=== PATIENT | female | born 1945 | race Caucasian/White ===

== ENCOUNTER → 2017-01-02 | Outpatient (CLI) | payer MEDICARE ==
--- NOTE | 2017-01-02 09:55 | XR ---
EXAMINATION TYPE: XR knee complete bilateral DATE OF EXAM: 01/02/2017 COMPARISON: NONE HISTORY: 71-year-old female chronic bilateral knee pain TECHNIQUE: 3 views each side FINDINGS: There is tricompartmental degenerative change with marginal spurring. Moderate loss of cartilage and joint space in the right medial compartment and mild in the left on these nonweightbearing views. Ext ensor mechanisms appear intact. No acute fracture or dislocation seen. IMPRESSION: Tricompartmental osteoarthrosis greatest in the right greater than left medial compartments. The over all degree of cartilage and joint space loss may be underestimated on these nonweightbearing views.
== END ==
LOC: RADXRYALE 09:25
PROVIDERS: ATTEND Family Medicine
DX: M17.0 Bilateral primary osteoarthritis of knee (principal)

== ENCOUNTER → 2017-03-24 | Outpatient (CLI) | payer MEDICARE | END | disposition home or self-care (01) | LOC: LABPAT 12:24 | PROVIDERS: ATTEND Orthopaedic Surgery | DX: Z01.812 Encounter for preprocedural laboratory examination (principal) | CPT/HCPCS: 87070 ==

== ENCOUNTER 2017-04-24 10:25 | Inpatient (IN) | payer MEDICARE ==
[2017-04-17 18:06] VITALS: BMI 40.0
--- NOTE | 2017-04-23 09:31 | HP ---
HISTORY AND PHYSICAL REASON FOR ADMISSION: Surgery scheduled for 04/24/2017 HISTORY OF PRESENT ILLNESS: Yanelis Hodges is a 71-year-old patient seen with symptomatic right knee osteoarthritis. We discussed treatment options. She elected to proceed with right total knee arthroplasty. Consent was obtained. Medical clearance was provided by Dr. Jack. PAST MEDICAL HISTORY: Hypertension, hyperlipidemia, hypothyroidism, non-insulin dependent diabetes. PAST SURGICAL HISTORY: Noncontributory. MEDICATIONS: Amitriptyline, atorvastatin, furosemide, levothyroxine, metformin. ALLERGIES: PENICILLIN, MORPHINE. SOCIAL HISTORY: Patient denies current tobacco use. PHYSICAL EXAMINATION: Evaluation of the right knee range of motion is negative 2 to 115 degrees. Tenderness along the medial joint line. Positive medial Alex's. Crepitus along the medial patellofemoral compartments. Range of motion. Ligaments stable. Hip rotation without pain. Distal neurovascular exam intact. RADIOGRAPHS: Right knee radiographs revealed severe medial and moderate patellofemoral compartment osteoarthritis. IMPRESSION: 1. Right knee osteoarthritis. 2. Clv-oxzdlap-fbgeeejcb diabetes. 3. Hypertension. 4. Hyperlipidemia. 5. Hypothyroidism. PLAN: Right total knee arthroplasty. Surgery scheduled 04/24/2017. MMODL / IJN: [id number] /
[~2017-04-24 10:25] MED LIST: ACETAMINOPHEN TAB 500 MG TAB PO ONE; DEXAMETHASONE SOD PHOSPHATE 10 MG/ML 1 ML VIAL IV ONE; HYDROmorphone 0.5 MG/0.5 ML SYRINGE IVP PRN; LIDOCAINE 1% 20 ML VIAL (10MG/ML) FOR IV START INTRADERMA PRN; MELOXICAM 7.5 MG TAB PO ONE; MIDAZOLAM 2 MG/2 ML VIAL IV PRN; ONDANSETRON 4 MG/2 ML VIAL IVP ONE; SCOPOLAMINE 1.5MG/72HR PATCH TRANSDERM ONE; TRANEXAMIC ACID 1,000 MG in SODIUM CHLORIDE 0.9% 50 ML IVPB ONE; ceFAZolin 2 GM in SODIUM CHLORIDE 0.9% 100 ML IVPB ONE; ceFAZolin IN SWFI 2 GM/20 ML SYRINGE IVP ONE
[2017-04-24 12:07] LABS: Glucose,Whole Blood 126 mg/dL (75-99)
[2017-04-24] MEDS: LACTATED RINGERS 1,000 ML IV SCH (12:13)
[2017-04-24] MEDS ORDERED: ROPIVACAINE 246.25 MG, EPINEPHrine 0.5 MG, KETOROLAC 30 MG, cloNIDine HCL/PF 80 MCG, WA... MISCELLANE ONE ×5 (13:23)
[2017-04-24] MEDS ORDERED: ROPIVACAINE 1,100 MG, SODIUM CHLORIDE 0.9% 330 ML MISCELLANE PRN ×2 (13:49)
--- NOTE | 2017-04-24 13:50 | P.ONQ ---
Anesthesiology Proc Note - PNB - Peripheral Nerve Block Performed Right Adductor Canal Indication: Acute Post-Operative Pain, Requested by physician (Kerri) Sedation Type: Sedate with meaningful contact maintained Preparation: Sterile Dressing Position: Supine Catheter: Indwelling Needle Types: Other (see comment) ([place]) Needle Size: 100mm (4") Needle Gauge: 18 Technique: Ultrasound Injectate: 0.5% Ropivacaine (see comment for volume) (22cc) Blood Aspirated: No Pain Paresthesia on Injection Noted: No Resistance on Injection: Normal Events: Uneventful and Well Tolerated
[2017-04-24] MEDS ORDERED: PROPOFOL 10 MG/ML 20 ML VIAL IV ONE (14:02)
[2017-04-24] MEDS ORDERED: MIDAZOLAM 2 MG/2 ML VIAL ONE (14:02)
[2017-04-24] MEDS ORDERED: fentaNYL (PF) 50 MCG/ML 2 ML AMP ONE (14:02)
[2017-04-24] MEDS ORDERED: SODIUM CHLORIDE 0.9% 100 ML BAG ONE (14:02)
[2017-04-24] MEDS ORDERED: TRANEXAMIC ACID 1,000 MG/10 ML VIAL ONE (14:02)
[2017-04-24] MEDS ORDERED: CLINDAMYCIN 600 MG in SODIUM CHLORIDE 0.9% 1,000 ML IRRIGATION ONE ×2 (14:34→15:30)
[2017-04-24] MEDS ORDERED: LACTATED RINGERS 1,000 ML IV ONE (15:38)
--- NOTE | 2017-04-24 16:27 | P.OP ---
Date of Procedure: 04/24/17 Preoperative Diagnosis: Right knee osteoarthritis Postoperative Diagnosis: Right knee osteoarthritis Procedure(s) Performed: Right total knee arthroplasty Implants: 1. Microport evolution MP size 4 right cemented femur 2. Microport evolution MP size 4 right cemented tibial base 3. Microport evolution 14 mm MP CS polyethylene tibial insert 4. Microport advanced all polyethylene cemented 35 mm patella Anesthesia: regional (Adductor canal catheter), local, spinal Surgeon: Rambo Manning History Teacher #1: Kevin De La Torre Estimated Blood Loss (ml): 75 Pathology: other (Bone) Condition: stable Disposition: PACU Indications for Procedure: 71-year-old patient seen with symptomatic right knee osteoarthritis. After treatment options were discussed, she elected to proceed with total knee arthroplasty. Operative Findings: See description of procedure Description of Procedure: Patient was taken to the operative suite after having undergone placement of an adductor catheter by the department of anesthesia. Patient underwent a spinal anesthetic by the department of anesthesia. Patient was given preoperative IV intake antibiotics and TXA. A well-padded tourniquet was placed about the right lower extremity. The lower extremity was then prepped and draped in the normal sterile orthopedic fashion. The extremity was elevated, a tourniquet was insufflated to 350. A standard anterior incision was made sharply through skin. Dissection was taken down through the subcutaneous soft tissues down to the extensor mechanism. A medial arthrotomy was performed, patella was everted and knee was flexed. There was advanced osteoarthritis noted. A proximal tibial cutting guide was positioned. Proximal tibial cut was made. A distal intramedullary femoral cutting guide was positioned, distal femoral cut made. We placed the appropriate sizing guide and selected the appropriate size. A distal 4-in-1 femoral cutting block was positioned, distal femoral cuts were made. We now placed a trial femoral component into position, along with an appropriate size tibial tray and insert. We now took the knee through range of motion and had full extension good flexion and good overall soft tissue balance noted. The patella was everted and a flush cut made with patellar quad tendon. We templated the patella, appropriate drill holes were made. An appropriate trial patella was positioned, knee was taken through full range of motion with the patella tracking very nicely. The trial patella was removed. Drill holes were made through the femoral component. All trial components were removed after marking off the appropriate rotation of the tibia. Retractors were now positioned along the proximal tibia. An appropriate keel punch was made with the appropriate size tibial guide. At this point appropriate size implants were chosen and opened. The joint was irrigated copiously with pulse lavage mechanical irrigation. The posterior capsule was infiltrated with local analgesic. We mixed antibiotic methylmethacrylate. Once the methyl methacrylate was ready, the tibial component was cemented into place removing any excess methylmethacrylate. The femoral component was cemented into place removing the removing any excess methylmethacrylate. We then inserted the appropriate size polyethylene tibial insert. We made sure that it was locked into position. We took the knee into full extension, and then back in a flexion making sure we had removed any excess methylmethacrylate. The patellar component was then cemented down and secured with clamp. Excess methylmethacrylate removed. We kept the knee in full extension, patellar clamp in position until methylmethacrylate had hardened. Once it had hardened the patellar clamp was removed. The knee was taken through full range of motion. The patella tracked nicely. There was good soft tissue balancing. The tourniquet was now released. Additional hemostasis was achieved via electrocautery. A second gram of TXA was given. The wound was irrigated with pulse lavage mechanical irrigation. The extensor mechanism was repaired with Vicryl. We checked the repair with range of motion and it was stable. The subcutaneous soft tissues were repaired with Vicryl in layers. The skin was approximated with pernio/Dermabond. Sterile dressings were applied followed by loose web roll and Noah bandage. The patient was transferred to a bed, and taken to recovery in stable and satisfactory condition. Zachariah CRUM assisted with the procedure.
[2017-04-24 17:37] LABS: Glucose,Whole Blood 167 mg/dL (75-99)
--- NOTE | 2017-04-24 17:43 | XR ---
EXAMINATION TYPE: XR knee limited RT DATE OF EXAM: 04/24/2017 CLINICAL HISTORY: Right knee pain and arthritis status post total knee replacement. TECHNIQUE: Portable AP and crosstable lateral views of the right knee are obtained immediately posto peratively. COMPARISON: None FINDINGS: Metallic hardware from total right knee arthroplasty is seen and appears satisfactory in a lignment and position. There is evidence of recent surgery with diffuse subcutaneous gas and soft ti ssue swelling noted. IMPRESSION: METALLIC HARDWARE FROM TOTAL RIGHT KNEE ARTHROPLASTY IS SATISFACTORY IN ALIGNMENT.
[2017-04-24] MEDS ORDERED: ONDANSETRON 4 MG/2 ML VIAL IVP PRN (18:32)
[2017-04-24] MEDS ORDERED: MAGNESIUM HYDROXIDE 2,400 MG/10 ML CUP PO PRN (18:32)
[2017-04-24] MEDS ORDERED: HYDROcodone/APAP 5-325MG 1 EACH TAB PO PRN ×2 (18:32)
[2017-04-24] MEDS ORDERED: hydrOXYzine PAMOATE 25 MG CAP PO PRN (18:32)
[2017-04-24] MEDS ORDERED: NALOXONE 0.4 MG/ML 1 ML VIAL IV PRN (18:32)
[2017-04-24] MEDS ORDERED: HYDROmorphone 4 MG/ML 1 ML SYRINGE IVP PRN (18:32)
[2017-04-24] MEDS: HYDROmorphone 4 MG/ML 1 ML SYRINGE IVP PRN (19:10)
[2017-04-24 20:08] LABS: Glucose,Whole Blood 217 mg/dL (75-99)
[2017-04-24] MEDS: FUROSEMIDE 40 MG TAB PO SCH (20:08)
[2017-04-24] MEDS: traMADol 50 MG TAB PO SCH (20:09)
[2017-04-24] MEDS: INSULIN ASPART 100 UNIT/ML 1 ML 10 ML VIAL SQ SCH (20:19)
[2017-04-24] MEDS ORDERED: VENLAFAXINE HCL ER 75 MG CAP PO SCH (21:00)
[2017-04-24] MEDS ORDERED: SENNOSIDES-DOCUSATE SODIUM 1 EACH TAB PO SCH (21:00)
[2017-04-24] MEDS ORDERED: FENOFIBRATE 160 MG TAB PO SCH (21:00)
[2017-04-24 21:39] VITALS: RESP 16
[2017-04-24] MEDS: metFORMIN 850 MG TAB PO SCH (21:41)
[2017-04-25] MEDS: ceFAZolin IN SWFI 2 GM/20 ML SYRINGE IVP SCH ×2 (01:06→09:54)
[2017-04-25] MEDS: HYDROmorphone 4 MG/ML 1 ML SYRINGE IVP PRN (01:13)
[2017-04-25] MEDS: LACTATED RINGERS 1,000 ML IV SCH (03:24)
[2017-04-25] MEDS ORDERED: LEVOTHYROXINE 25 MCG TAB PO SCH (06:30)
--- NOTE | 2017-04-25 06:40 | P.PN ---
Progress Note - Text Progress Note Date: 04/25/17 . Postoperative day # 1 status post total knee arthroplasty, under spinal anesthesia, and adductor canal catheter placed for postoperative analgesia, currently at ropivacaine 0.2% 8 mL per hour and continuous infusion, catheter site local., visual analogue scale is 4-5/10, patient using oral pain medication for breakthrough pain. Assessment and plan= Acute postoperative pain, adductor canal catheter for pain control, pain is well controlled we'll continue the same management.
[2017-04-25 07:09] LABS: Glucose,Whole Blood 147 mg/dL (75-99)
[2017-04-25 07:13] LABS: Basophils % (A) 0 %; Eosinophils % (A) 0 %; HCT 38.8 % (34.0-46.0); HGB 12.3 gm/dL (11.4-16.0); Lymphocytes # (A) 2.8 k/uL (1.0-4.8); Lymphocytes % (A) 17 %; MCH 29.7 pg (25.0-35.0); MCHC 31.7 g/dL (31.0-37.0); MCV 93.6 fL (80.0-100.0); Monocytes # (A) 0.9 k/uL (0-1.0); Monocytes % (A) 5 %; Neutrophils # (A) 12.4 k/uL (1.3-7.7); Neutrophils % (A) 75 %; Platelet Count 307 k/uL (150-450); RBC 4.15 m/uL (3.80-5.40); RDW 12.9 % (11.5-15.5); WBC 16.5 k/uL (3.8-10.6)
[2017-04-25] MEDS: INSULIN ASPART 100 UNIT/ML 1 ML 10 ML VIAL SQ SCH ×2 (07:39→12:53)
[2017-04-25] MEDS: metFORMIN 850 MG TAB PO SCH (07:39)
--- NOTE | 2017-04-25 07:51 | CONS ---
CONSULTATION REASON FOR CONSULTATION: Advice regarding diabetes and other medical issues requested by Dr. Manning. HISTORY OF PRESENT ILLNESS: This 71-year-old woman with a past medical history of diabetes mellitus, hyperlipidemia, history of DJD, hypothyroidism, history of anxiety being followed by Dr. Jack in the outpatient setting, underwent right total knee arthroplasty by Dr. Manning. There is no history of chest pain. No palpitations. No headache, loss of consciousness, seizures. No nausea or vomiting, diarrhea, fever, rigors or chills at this time. Accu-Cheks after the surgery was noted to be 126, 167 and 217. PAST MEDICAL HISTORY: History of diabetes, hyperlipidemia, history of DJD, history of hypothyroidism, history of cholecystectomy. MEDICATIONS: Prior to admission include home medications are: 1. Metformin 850 mg p.o. daily. 2. Effexor XR 75 mg q.h.s. 3. Melatonin 20 mg q.h.s. 4. Synthroid 25 mcg p.o. daily. 5. Advil 200 mg q.6h p.r.n. 6. Lasix 40 mg p.o. b.i.d. 7. Fenofibrate 135 mg q.h.s. 8. Aspirin 325 mg p.o. daily. 9. Elavil 25-75 mg q.h.s. ALLERGIES: LISINOPRIL, PENICILLIN, VICODIN, MORPHINE. FAMILY HISTORY: History of cancer in the family. SOCIAL HISTORY: Previous history of smoking. No history of current smoking or alcohol intake. REVIEW OF SYSTEMS: ENT: No diminished hearing or vision. CARDIOVASCULAR: No angina or palpitations. Respirations: No cough noted. GI no nausea or vomiting. no dysuria. Nervous system: No numbness, weakness. Allergy/Immunology: No asthma or hayfever. Musculoskeletal as mentioned earlier. Hematology/oncology: No history of anemia. Endocrine: Hypothyroidism, diabetes. Constitutional: As mentioned earlier. Dermatology: Negative. Rheumatology: Negative. Psychiatric: As mentioned earlier. PHYSICAL EXAMINATION: Alert and oriented x3. Pulse 84. Blood pressure 140/110, improved to 140/63. Respirations 16, temperature 97.4, pulse ox 98% on 3 L. HEENT: Conjunctivae normal. Oral mucosa moist. Neck is no jugular venous distention. No carotid bruit. No lymph node enlargement. Cardiovascular system: S1, S2 muffled. No S3, no S4. Respiratory: Breath sounds diminished in the bases. No rhonchi. No crackles. ABDOMEN: Soft, nontender. No mass palpable. Legs status post knee arthroplasty. NERVOUS SYSTEM: Higher functions as mentioned. Moves all 4 limbs. No focal motor or sensory deficits. Lymphatics: No lymph nodes palpable in the neck, axillae or groin. Skin: No ulcer, rash or bleeding. LABS: At this time glucose noted. ASSESSMENT: 1. Status post right total knee arthroplasty. 2. Diabetes type 2. 3. Hypothyroidism. 4. Hyperlipidemia. 5. History of degenerative joint disease. 6. History of anxiety, depression. 7. Remote history of nicotine dependence. 8. History of cholecystectomy. RECOMMENDATIONS AND DISCUSSION: This 71-year-old woman who presented with multiple complex medical issues. At this time, we will monitor the patient closely, continue the current medications, symptomatic treatment. I recommend to resume the home medications. DVT prophylaxis. Incentive spirometry. We will follow the patient closely. The patient may be asked to follow with the primary care physician after discharge. Thank you Dr. Manning for letting us participate in the care of this patient. I would also recommend to monitor blood sugars closely and Accu-Cheks a.c. and q.h.s. and insulin to scale also. MMODL / IJN: [id number] /
[2017-04-25] MEDS ORDERED: ENOXAPARIN 30 MG/0.3 ML SYRINGE SQ SCH (09:00)
[2017-04-25] MEDS ORDERED: ASPIRIN 325 MG TAB PO SCH (09:00)
[2017-04-25] MEDS ORDERED: MELOXICAM 7.5 MG TAB PO SCH (09:00)
[2017-04-25] MEDS ORDERED: FAMOTIDINE 20 MG TAB PO SCH (09:00)
[2017-04-25] MEDS: traMADol 50 MG TAB PO SCH ×2 (09:56→12:54)
[2017-04-25] MEDS: FUROSEMIDE 40 MG TAB PO SCH ×2 (09:56→16:15)
[2017-04-25 11:18] LABS: Glucose,Whole Blood 164 mg/dL (75-99)
[2017-04-25 12:38] LABS: Appearance,Urine Clear (Clear); Bacteria,Urine Rare /hpf; Bilirubin,Urine Negative (Negative); Blood,Urine Negative (Negative); Color,Urine Yellow; Glucose,Urine (UA) Negative (Negative); Ketones,Urine Negative (Negative); Leukocyte Esterase,Urine Moderate (Negative); Mucus,Urine Rare /hpf; Nitrite,Urine Negative (Negative); PH, Urine 5.5 (5.0-8.0); Protein,Urine Negative (Negative); RBC,Urine 1 /hpf (0-5); Specific Gravity,Urine 1.018 (1.001-1.035); Squamous Epithelial Cell,Urine 2 /hpf (0-4); Urobilinogen,Urine <2.0 mg/dL (<2.0); WBC,Urine 12 /hpf (0-5)
--- NOTE | 2017-04-25 13:15 | PN ---
PROGRESS NOTE DATE OF SERVICE: 04/25/2017 This 71-year-old woman who was admitted after right total knee arthroplasty is improving significantly. No chest pain. No palpitations. No fever. PHYSICAL EXAM: On exam, alert and oriented x3. Pulse 75, blood pressure 130/77, respiration 16, temperature 97.9, pulse ox 93% on room air. HEENT: Conjunctivae normal. NECK: No jugular venous distention. CARDIOVASCULAR: S1 and S2 muffled. RESPIRATORY: Breath sounds diminished at the bases. No rhonchi. No crackles. ABDOMEN: Soft. LEGS: Status post surgery. NERVOUS SYSTEM: No focal deficits. LABS: WBC 16.5. Glucose is 164. ASSESSMENT: 1. Status post right total knee arthroplasty. 2. Increased WBC, possibly reactive. 3. Diabetes mellitus type 2. 4. Hypothyroidism. 5. Hyperlipidemia. 6. History of degenerative joint disease. 7. History of anxiety and depression. 8. Remote history of nicotine dependence. 9. History of cholecystectomy. RECOMMENDATION AND DISCUSSION: Recommend to continue current medications, continue with monitoring and symptomatic treatment. I recommend UA with micro. Resume the home medications, incentive inspirometry, DVT prophylaxis. Recommend close follow up with the primary physician in the outpatient setting. Thank you Dr. Manning. MMODL / IJN: [id number] /
--- NOTE | 2017-04-25 14:08 | P.PN ---
Subjective Progress Note Date: 04/25/17 Principal diagnosis: Status post right total knee arthroplasty Patient seen today resting in her hospital bed, she appears comfortable. She is done well with physical therapy at this time. She denies any headaches, lightheadedness, chest pain or shortness of breath. Objective - Vital Signs Vital signs: Vital Signs Temp 97.9 F 04/25/17 08:28 Pulse 75 04/25/17 08:28 Resp 16 04/25/17 08:28 BP 130/77 04/25/17 08:28 Pulse Ox 93 L 04/25/17 08:28 Intake & Output 04/24/17 04/25/17 04/25/17 18:59 06:59 18:59 Intake Total 1802 1350 150 Output Total 75 Balance 1727 1350 150 Weight 92.986 kg Intake: IV 1802 Intake, IV Titration 450 Amount Lactated Ringers 1,000 ml 450 @ 50 mls/hr IV .Q20H ANAT Rx#:[id number] Oral 900 150 Output: Estimated Blood Loss 75 Other: Voiding Method Bedside Commode Toilet # Voids 2 2 - Exam Right lower extremity: Incision is clean, dry, and intact. The prineo tape is in good condition. There is minimal soft tissue swelling and ecchymosis surrounding the medial and lateral aspects of the incision. Calf is soft, no tenderness with palpation. Plantar flexion, dorsiflexion, EHL, FHL are intact. Sensory exam to light touch throughout the extremity is intact, dorsal pedis pulses 2+. - Labs CBC & Chem 7: 04/25/17 06:39 04/24/17 12:06 Labs: Abnormal Lab Results - Last 24 Hours (Table) 04/24/17 04/24/17 04/25/17 Range/Units 17:34 20:06 06:39 WBC 16.5 H (3.8-10.6) k/uL Neutrophils # 12.4 H (1.3-7.7) k/uL POC Glucose (mg/dL) 167 H 217 H (75-99) mg/dL Ur Leukocyte Esterase (Negative) Urine WBC (0-5) /hpf Urine Bacteria (None) /hpf Urine Mucus (None) /hpf 04/25/17 04/25/17 04/25/17 Range/Units 06:58 11:09 12:22 WBC (3.8-10.6) k/uL Neutrophils # (1.3-7.7) k/uL POC Glucose (mg/dL) 147 H 164 H (75-99) mg/dL Ur Leukocyte Esterase Moderate H (Negative) Urine WBC 12 H (0-5) /hpf Urine Bacteria Rare H (None) /hpf Urine Mucus Rare H (None) /hpf Assessment and Plan Plan: Assessment: 1. Postop day #1 status post right total knee arthroplasty Plan: 1. Pain control, continue oral medication 2. Home care nursing after discharge 3. Wound care was discussed 4. GI and DVT prophylaxis, aspirin 325 mg twice a day after discharge 5. Medical recommendations 6. Discharge planning: Patient stable for discharge to home Time with Patient: Less than 30
[2017-04-25 15:06] VITALS: BP 172/69; PULSE 73; TEMP 97.6
[2017-04-25] MEDS ORDERED: AMITRIPTYLINE HCL 25 MG TAB PO SCH (21:00)
[2017-04-26] MEDS ORDERED: MELATONIN 5 MG TABLET PO SCH (21:00)
== END 2017-04-25 17:50 | disposition home health service (06) | DRG 470 ==
LOC: 2ORMAIN 11:19 → 3SUR 16:41
PROVIDERS: ADMIT Orthopaedic Surgery; ATTEND Orthopaedic Surgery
PROC: 0SRC0J9 Replacement of Right Knee Joint with Synthetic Substitute, Cemented, Open Approach (ICD-10-PCS; principal; 2017-04-24 13:15)
DX: M17.11 Unilateral primary osteoarthritis, right knee (principal); E11.9 Type 2 diabetes mellitus without complications; E03.9 Hypothyroidism, unspecified; E78.5 Hyperlipidemia, unspecified; F41.9 Anxiety disorder, unspecified; I10 Essential (primary) hypertension; G89.18 Other acute postprocedural pain; Z79.899 Other long term (current) drug therapy; Z79.84 Long term (current) use of oral hypoglycemic drugs; Z88.6 Allergy status to analgesic agent; Z88.0 Allergy status to penicillin; Z90.49 Acquired absence of other specified parts of digestive tract; Z88.8 Allergy status to other drugs, medicaments and biological substances; Z80.9 Family history of malignant neoplasm, unspecified; Z87.891 Personal history of nicotine dependence
CPT/HCPCS: 81001; 83036; 84132; 85025; 88300; 94760

== ENCOUNTER → 2017-06-14 | Outpatient (CLI) | payer MEDICARE ==
--- NOTE | 2017-06-15 12:13 | ECHOF ---
Referral Reason:Hypertension I14 Cardiac Murmur R011 MEASUREMENTS -------- HEIGHT: 152.4 cm WEIGHT: 90.7 kg BP: RVIDd: 3.1 cm (< 3.3) IVSd: 1.2 cm (0.6 - 1.1) LVIDd: 4.1 cm (3.9 - 5.3) LVPWd: 1.5 cm (0.6 - 1.1) EDV(Teich): 74 ml IVSs: 1.7 cm LVIDs: 2.7 cm LVPWs: 1.6 cm %IVS Thck: 37 % ESV(Teich): 26 ml EF(Teich): 65 % %FS: 35 % SV(Teich): 49 ml LA Diam: 3.6 cm (2.7 - 3.8) LALs A4C: 4.8 cm LAAs A4C: 16.5 cm LAESV A-L A4C: 48 ml LAESV MOD A4C: 46 ml LALs A2C: 4.7 cm LAAs A2C: 16.1 cm LAESV A-L A2C: 48 ml LAESV MOD A2C: 45 ml LAESV(A-L): 49 ml LAESV Index (A-L): 25.96 ml/m Ao Diam: 3.4 cm (2.0 - 3.7) AV Cusp: 1.6 cm (1.5 - 2.6) LA Diam: 3.6 cm (2.7 - 3.8) MV EXCURSION: 14.924 mm (> 18.000) MV EF SLOPE: 78 mm/s (70 - 150) EPSS: 0.2 cm MV E Ruperto: 0.52 m/s MV DecT: 239 ms MV Dec [place]: 2.2 m/s MV A Ruperto: 0.67 m/s MV E/A Ratio: 0.77 MV PHT: 69 ms E/E': 10.20 E': 0.05 m/s LVOT Vmax: 1.09 m/s LVOT maxP.79 mmHg AV Vmax: 1.83 m/s AV maxP.45 mmHg TR Vmax: 2.01 m/s TR maxP.22 mmHg RAP: 5.00 mmHg RVSP: 21.22 mmHg FINDINGS -------- Sinus rhythm. This was a technically adequate study. The left ventricular size is normal. There is mild concentric left ventricular hypertrophy. Overa ll left ventricular systolic function is normal with, an EF between 55 - 60 %. The right ventricle is normal in size. The left atrial size is normal. Normal LA size by volume 22+/-6 ml/m2. The right atrial size is normal. There is mild aortic valve sclerosis. There is no evidence of aortic regurgitation. Mild mitral annular calcification present. Mild mitral regurgitation is present. Mild tricuspid regurgitation present. There is no evidence of pulmonary hypertension. The right v entricular systolic pressure, as measured by Doppler, is 21.22mmHg. There is no pulmonic regurgitation present. The aortic root size is normal. There is no pericardial effusion. CONCLUSIONS -------- 1. The left ventricular size is normal. 2. There is mild concentric left ventricular hypertrophy. 3. Overall left ventricular systolic function is normal with, an EF between 55 - 60 %. 4. Normal LA size by volume 22+/-6 ml/m2. 5. There is mild aortic valve sclerosis. 6. Mild mitral annular calcification present. 7. Mild mitral regurgitation is present. 8. Mild tricuspid regurgitation present. 9. There is no evidence of pulmonary hypertension. 10. The right ventricular systolic pressure, as measured by Doppler, is 21.22mmHg. 11. There is no pulmonic regurgitation present. 12. The aortic root size is normal. 13. There is no pericardial effusion. UNIT TECHNICIAN: Lucy Burger RDCS
== END | disposition home or self-care (01) ==
LOC: RADECHMAIN 08:19
PROVIDERS: ATTEND Family Medicine
DX: I08.1 Rheumatic disorders of both mitral and tricuspid valves (principal); I10 Essential (primary) hypertension
CPT/HCPCS: 93306

== ENCOUNTER → 2017-07-17 | Outpatient (CLI) | payer MEDICARE | END | disposition home or self-care (01) | LOC: LABWHC1 08:17 | PROVIDERS: ATTEND Orthopaedic Surgery | DX: Z01.812 Encounter for preprocedural laboratory examination (principal) | CPT/HCPCS: 87070 ==

== ENCOUNTER 2017-07-31 07:30 | Inpatient (IN) | payer MEDICARE ==
[2017-07-20 10:58] VITALS: BMI 39.8
--- NOTE | 2017-07-30 09:26 | HP ---
HISTORY AND PHYSICAL REASON FOR ADMISSION: 07/31/2017 HISTORY OF PRESENT ILLNESS: Yanelis Hodges is a 71-year-old patient seen with symptomatic left knee osteoarthritis. We discussed treatment options. She elected to proceed with left total knee arthroplasty. Consent regarding the procedure was obtained. Medical clearance was provided by Dr. Jack. PAST MEDICAL HISTORY: Hypertension, gfh-hvylxvj-ofnvxpqbc diabetes, hyperlipidemia, hypothyroidism. PAST SURGICAL HISTORY: Right total knee arthroplasty. MEDICATIONS: Amitriptyline, atorvastatin, furosemide, levothyroxine, metformin, venlafaxine. ALLERGIES: ARE TO PENICILLIN and MORPHINE SULFATE. SOCIAL HISTORY: Patient occasionally smokes cigarettes. PHYSICAL EXAMINATION: Evaluation left knee range of motion is -1 to 110 degrees. Tenderness along the medial joint line. Positive medial Alex's. Crepitus along the medial patellofemoral compartments range of motion. Ligaments are stable. Hip rotation is without pain. Distal neurovascular exam is intact. RADIOGRAPHS: Radiographs of the left knee reveal severe osteoarthritic changes. IMPRESSION: 1. Left knee osteoarthritis. 2. Hypertension. 3. Khg-xgmgdzq-fyiimlnlv diabetes. 4. Hypothyroidism. 5. Hyperlipidemia. PLAN: Left total knee arthroplasty. Surgery scheduled for 07/31/2017. MMODL / IJN: [id number] /
[~2017-07-31 07:30] MED LIST changes: -HYDROmorphone 0.5 MG/0.5 ML SYRINGE IVP PRN; -LIDOCAINE 1% 20 ML VIAL (10MG/ML) FOR IV START INTRADERMA PRN; -SCOPOLAMINE 1.5MG/72HR PATCH TRANSDERM ONE; -ceFAZolin 2 GM in SODIUM CHLORIDE 0.9% 100 ML IVPB ONE; +fentaNYL (PF) 50 MCG/ML 2 ML AMP IV PRN
[2017-07-31 11:55] LABS: Glucose,Whole Blood 131 mg/dL (75-99)
[2017-07-31] MEDS: LACTATED RINGERS 1,000 ML IV SCH (11:57)
[2017-07-31] MEDS ORDERED: LIDOCAINE 1% 20 ML VIAL (10MG/ML) FOR IV START INTRADERMA ONE (11:57)
[2017-07-31] MEDS ORDERED: TRANEXAMIC ACID 1,000 MG/10 ML VIAL ONE (13:09)
[2017-07-31] MEDS ORDERED: PHENYLEPHRINE-0.9% NACL SYG 1 MG/10 ML SYRINGE ONE (13:09)
[2017-07-31] MEDS ORDERED: fentaNYL (PF) 50 MCG/ML 2 ML AMP ONE (13:09)
[2017-07-31] MEDS ORDERED: ePHEDrine SULFATE/0.9% NACL/PF 50 MG/5 ML SYRINGE IV ONE (13:09)
[2017-07-31] MEDS ORDERED: SODIUM CHLORIDE 0.9% 100 ML BAG ONE (13:09)
[2017-07-31] MEDS ORDERED: PROPOFOL 10 MG/ML 20 ML VIAL IV ONE (13:09)
[2017-07-31] MEDS ORDERED: MIDAZOLAM 2 MG/2 ML VIAL ONE (13:09)
[2017-07-31] MEDS ORDERED: ROPIVACAINE 1,100 MG, SODIUM CHLORIDE 0.9% 330 ML MISCELLANE PRN ×2 (13:15)
--- NOTE | 2017-07-31 13:17 | P.ONQ ---
Anesthesiology Proc Note - PNB - Peripheral Nerve Block Performed Left Adductor Canal Infusion Indication: Dx/Pain Location (Left Knee) Specifically requested for management of pain by Dr.: Rambo Manning Sedation Type: Sedate with meaningful contact maintained Preparation: Sterile Prep Position: Supine Catheter: Indwelling Needle Types: Emile Needle Size: 100mm (4") Technique: Ultrasound Injectate: 0.5% Ropivacaine (see comment for volume) (30cc) Blood Aspirated: No Pain Paresthesia on Injection Noted: No Resistance on Injection: Normal Events: Uneventful and Well Tolerated
[2017-07-31] MEDS ORDERED: CLINDAMYCIN 1,800 MG in SODIUM CHLORIDE 0.9% IRRIGATIO 3,000 ML IRRIGATION ONE (13:46)
[2017-07-31] MEDS ORDERED: LACTATED RINGERS 1,000 ML IV ONE (14:21)
[2017-07-31] MEDS ORDERED: ONDANSETRON 4 MG/2 ML VIAL IVP PRN (15:20)
[2017-07-31] MEDS ORDERED: MORPHINE SULFATE 4 MG/ML SYRINGE IVP PRN ×2 (15:20)
[2017-07-31] MEDS ORDERED: NALOXONE 0.4 MG/ML 1 ML VIAL IV PRN (15:20)
[2017-07-31] MEDS ORDERED: HYDROmorphone 2 MG TAB PO PRN ×3 (15:20→15:45)
[2017-07-31] MEDS ORDERED: HYDROcodone/APAP 7.5-325MG 1 EACH TAB PO PRN (15:20)
--- NOTE | 2017-07-31 15:20 | P.OP ---
Date of Procedure: 07/31/17 Preoperative Diagnosis: Left knee osteoarthritis Postoperative Diagnosis: Left knee osteoarthritis Procedure(s) Performed: Left total knee arthroplasty Implants: 1. Microport evolution MP CS/CR size 4 cemented left femur 2. Microport evolution MP keeled size 4 cemented tibial base 3. Microport evolution MP size 414 mm polyethylene tibial insert 4. Microport advance all polyethylene size 32 mm cemented patella Anesthesia: regional (Adductor canal block), spinal Surgeon: Rambo Manning Squeegee Tender #1: Kevin De La Torre Estimated Blood Loss (ml): 60 Pathology: other (Bone) Condition: stable Disposition: PACU Indications for Procedure: 71-year-old patient seen with symptomatic left knee osteoarthritis. After having treatment options discussed, she elected to proceed with total knee arthroplasty. Operative Findings: See description of procedure Description of Procedure: Patient was taken to the operative suite after having an adductor canal catheter placed by the department of anesthesia. Patient underwent a spinal anesthetic by the department of anesthesia. Patient was given preoperative IV intake antibiotics and TXA. A well-padded tourniquet was placed about the left lower extremity. The lower extremity was then prepped and draped in the normal sterile orthopedic fashion. The extremity was elevated, a tourniquet was insufflated to 350. A standard anterior incision was made sharply through skin. Dissection was taken down through the subcutaneous soft tissues down to the extensor mechanism. A medial arthrotomy was performed, patella was everted and knee was flexed. There was advanced osteoarthritis noted. A proximal tibial cutting guide was positioned. Proximal tibial cut was made. A distal intramedullary femoral cutting guide was positioned, distal femoral cut made. We placed the appropriate sizing guide and selected the appropriate size. A distal 4-in-1 femoral cutting block was positioned, distal femoral cuts were made. We now placed a trial femoral component into position, along with an appropriate size tibial tray and insert. We now took the knee through range of motion and had full extension good flexion and good overall soft tissue balance noted. The patella was everted and a flush cut made with patellar quad tendon. We templated the patella, appropriate drill holes were made. An appropriate trial patella was positioned, knee was taken through full range of motion with the patella tracking very nicely. The trial patella was removed. Drill holes were made through the femoral component. All trial components were removed after marking off the appropriate rotation of the tibia. Retractors were now positioned along the proximal tibia. An appropriate keel punch was made with the appropriate size tibial guide. At this point appropriate size implants were chosen and opened. The joint was irrigated copiously with pulse lavage mechanical irrigation. We mixed antibiotic methylmethacrylate. Once the methyl methacrylate was ready, the tibial component was cemented into place removing any excess methylmethacrylate. The femoral component was cemented into place removing the removing any excess methylmethacrylate. We then inserted the appropriate size polyethylene tibial insert. We made sure that it was locked into position. We took the knee into full extension, and then back in a flexion making sure we had removed any excess methylmethacrylate. The patellar component was then cemented down and secured with clamp. Excess methylmethacrylate removed. We kept the knee in full extension, patellar clamp in position until methylmethacrylate had hardened. Once it had hardened the patellar clamp was removed. The knee was taken through full range of motion. The patella tracked nicely. There was good soft tissue balancing. The tourniquet was now released. Additional hemostasis was achieved via electrocautery. A second gram of TXA was given. The wound was irrigated with pulse lavage mechanical irrigation. The extensor mechanism was repaired with Vicryl. We checked the repair with range of motion and it was stable. The subcutaneous soft tissues were repaired with Vicryl in layers. The skin was approximated with skin dilshad. Sterile dressings were applied followed by loose web roll and Noah bandage. The patient was transferred to a bed, and taken to recovery in stable and satisfactory condition. Zachariah CRUM assisted with the procedure.
--- NOTE | 2017-07-31 15:51 | XR ---
Limited left knee HISTORY: Status post left knee arthroplasty 2 views of the left knee Patient is status post left knee arthroplasty. There are overlying dilshad. Alignment is anatomic. Lolly cency in the soft tissues compatible with postop state. IMPRESSION: Orthopedic follow-up.
[2017-07-31] MEDS: SODIUM CHLORIDE 0.9% 1,000 ML IV SCH (16:55)
[2017-07-31] MEDS: traMADol 50 MG TAB PO SCH ×2 (16:56→22:19)
[2017-07-31] MEDS: hydrOXYzine PAMOATE 25 MG CAP PO PRN ×2 (16:58→23:34)
[2017-07-31 17:06] LABS: Glucose,Whole Blood 173 mg/dL (75-99)
[2017-07-31] MEDS: INSULIN ASPART 100 UNIT/ML 1 ML 10 ML VIAL SQ SCH ×2 (17:30→22:23)
[2017-07-31] MEDS: HYDROcodone/APAP 7.5-325MG 1 EACH TAB PO PRN ×2 (17:33→23:33)
[2017-07-31 20:57] LABS: Glucose,Whole Blood 247 mg/dL (75-99)
[2017-07-31] MEDS: SENNOSIDES-DOCUSATE SODIUM 1 EACH TAB PO SCH (22:18)
[2017-07-31] MEDS: ceFAZolin IN SWFI 2 GM/20 ML SYRINGE IVP SCH (22:19)
[2017-07-31] MEDS: MELATONIN 5 MG TABLET PO SCH (22:20)
[2017-07-31] MEDS: ENOXAPARIN 30 MG/0.3 ML SYRINGE SQ SCH (22:20)
[2017-07-31] MEDS: AMITRIPTYLINE HCL 25 MG TAB PO SCH (22:20)
[2017-07-31] MEDS: FUROSEMIDE 40 MG TAB PO SCH (22:20)
[2017-07-31] MEDS: VENLAFAXINE HCL ER 75 MG CAP PO SCH ×2 (22:20→23:44)
[2017-08-01] MEDS: HYDROcodone/APAP 7.5-325MG 1 EACH TAB PO PRN ×4 (05:09→19:55)
[2017-08-01] MEDS: LACTATED RINGERS 1,000 ML IV SCH (05:10)
[2017-08-01] MEDS: ceFAZolin IN SWFI 2 GM/20 ML SYRINGE IVP SCH (05:10)
[2017-08-01] MEDS: LEVOTHYROXINE 25 MCG TAB PO SCH (05:31)
[2017-08-01 06:55] LABS: Glucose,Whole Blood 146 mg/dL (75-99)
[2017-08-01 07:28] LABS: Basophils % (A) 0 %; Eosinophils % (A) 0 %; HCT 37.2 % (34.0-46.0); Lymphocytes # (A) 2.2 k/uL (1.0-4.8); Lymphocytes % (A) 17 %; MCH 29.5 pg (25.0-35.0); MCHC 32.1 g/dL (31.0-37.0); Mean Platelet Volume 7.6; Monocytes # (A) 0.8 k/uL (0-1.0); Monocytes % (A) 6 %; Neutrophils # (A) 9.8 k/uL (1.3-7.7); Neutrophils % (A) 75 %; Platelet Count 344 k/uL (150-450); RBC 4.05 m/uL (3.80-5.40); RDW 13.4 % (11.5-15.5)
--- NOTE | 2017-08-01 07:47 | P.PN ---
Progress Note - Text Postoperative day # 1 status post total knee arthroplasty, on adductor canal perineural catheter placed for postoperative analgesia. Ropivacaine 0.2% 8 mL per hour through ON-Q pump continuous infusion. Pain is well controlled. On visual analog scale 2/10 Patient is taking PRN oral pain medications. Catheter site: Looks Ok. There is no erythema or tenderness. Continue with the current pain management plan and will follow.
[2017-08-01 08:04] VITALS: RESP 16
--- NOTE | 2017-08-01 08:10 | CONS ---
CONSULTATION REASON FOR CONSULTATION: Advice regarding diabetes mellitus and other medical issues requested by Dr. Manning. HISTORY OF PRESENT ILLNESS: This is a 72-year-old woman with a past medical history of diabetes, hypertension, hyperlipidemia, DJD being followed by Dr. Jack in the outpatient setting. Patient underwent left total knee arthroplasty. Patient complains of left knee pain. The patient is admitted for further evaluation and treatment. There is no history of fever or rigors. There is no history of headaches, loss of consciousness. PAST MEDICAL HISTORY: Hypertension, hyperlipidemia, diabetes, DJD, hypothyroidism. MEDICATIONS: Home medications are Glucophage 850 mg q.a.m., Effexor XR 75 mg q.h.s. melatonin 10-20 mg q.h.s., losartan 100 mg p.o. q.h.s., Synthroid 25 mcg q.a.m., Lasix 40 mg p.o. b.i.d., fenofibrate 135 mg q.h.s. Colace 100 mg p.o. daily, aspirin 325 mg q.h.s., Elavil 25 to 75 mg p.o. q.h.s. Tylenol 1000 mg p.o. b.i.d. ALLERGIES: LISINOPRIL, PENICILLIN, VICODIN, MORPHINE. FAMILY HISTORY: History of cancer in the family. SOCIAL HISTORY: Previous history of smoking. Occasional alcohol intake. REVIEW OF SYSTEMS: ENT: No diminished hearing or vision. CARDIOVASCULAR: No angina. RESPIRATION: As mentioned earlier. GI: No nausea. : No dysuria. NERVOUS SYSTEM: No numbness, weakness. ALLERGY/IMMUNOLOGY: No asthma or hayfever. MUSCULOSKELETAL: As mentioned earlier. HEMATOLOGY/ONCOLOGY: No history of anemia. ENDOCRINE: Hypothyroidism. CONSTITUTIONAL: As mentioned earlier. DERMATOLOGY: Negative. PSYCHIATRY: As mentioned earlier. PHYSICAL EXAMINATION: Alert and oriented x3. Pulse is normal, blood pressure 159/73, respiration 14, temperature 97.7, pulse ox 94% on room air. HEENT: Conjunctivae normal. Oral mucosa moist. Neck is no jugular venous distention. No lymph node enlargement. CARDIOVASCULAR SYSTEM: No angina. RESPIRATORY: Breath sounds diminished at the bases. No rhonchi. No crackles. ABDOMEN: Soft, nontender. No mass palpable. LEGS: Status post left knee arthroplasty. NERVOUS SYSTEM: Higher functions as mentioned earlier. Moves all four limbs. No focal deficits. LYMPHATICS: No lymph node enlargement in the neck or axillae. SKIN: No rashes, ulcers or bleeding. LABS: Accu-Cheks 173, 247. ASSESSMENT: 1. Status post left total knee arthroplasty. 2. Diabetes mellitus type 2. 3. Hypertension. 4. Hyperlipidemia. 5. Degenerative joint disease. 6. Hypothyroidism. 7. History of cholecystectomy. 8. History of anxiety, depression. 9. Remote history of nicotine dependence. RECOMMENDATIONS: In this 72-year-old woman who presented with multiple complex medical issues, will monitor the patient closely. Continue with the current management and symptomatic treatment; otherwise, resume the home medications and scale. DVT prophylaxis. Incentive spirometry and will follow the patient closely. The patient may be asked to follow up with Dr. Jack closely after discharge. Thank you, Dr. Manning for allowing us participate in the care of this patient. MMODL / IJN: [id number] /
[2017-08-01] MEDS: DOCUSATE 100 MG CAP PO SCH (08:34)
[2017-08-01] MEDS: FAMOTIDINE 20 MG TAB PO SCH (08:34)
[2017-08-01] MEDS: ENOXAPARIN 30 MG/0.3 ML SYRINGE SQ SCH ×2 (08:34→19:58)
[2017-08-01] MEDS: LOSARTAN 50 MG TAB PO SCH (08:35)
[2017-08-01] MEDS: FUROSEMIDE 40 MG TAB PO SCH ×2 (08:35→15:24)
[2017-08-01] MEDS: MELOXICAM 7.5 MG TAB PO SCH (08:36)
[2017-08-01] MEDS: metFORMIN 850 MG TAB PO SCH (08:37)
[2017-08-01] MEDS: INSULIN ASPART 100 UNIT/ML 1 ML 10 ML VIAL SQ SCH ×4 (08:39→22:40)
[2017-08-01] MEDS: traMADol 50 MG TAB PO SCH ×4 (08:49→22:39)
[2017-08-01] MEDS: SODIUM CHLORIDE 0.9% 1,000 ML IV SCH (09:42)
[2017-08-01] MEDS: hydrOXYzine PAMOATE 25 MG CAP PO PRN ×3 (10:20→19:55)
[2017-08-01 11:33] LABS: Glucose,Whole Blood 138 mg/dL (75-99)
--- NOTE | 2017-08-01 13:38 | P.PN ---
Subjective Progress Note Date: 08/01/17 Principal diagnosis: Status post left total knee arthroplasty Patient seen today resting in her hospital bed, she appears comfortable. She notes a slight increase in pain in the knee today. She denies any headaches, lightheadedness, chest pain or shortness of breath. Objective - Vital Signs Vital signs: Vital Signs Temp 98.3 F 08/01/17 08:03 Pulse 77 08/01/17 08:03 Resp 16 08/01/17 08:03 BP 133/66 08/01/17 08:03 Pulse Ox 94 L 08/01/17 08:03 Intake & Output 07/31/17 08/01/17 08/01/17 18:59 06:59 18:59 Intake Total 1751 800 Output Total 60 200 Balance 1691 600 Weight 92.533 kg Intake: IV 1401 Intake, IV Titration 800 Amount Sodium Chloride 0.9% 1, 800 000 ml @ 50 mls/hr IV . Q20H ANAT Rx#:[id number] Oral 350 Output: Urine 200 Estimated Blood Loss 60 Other: Voiding Method Toilet # Voids 2 1 - Exam Left lower extremity: Incision is clean, dry, and intact. Meet are in good position. There is minimal soft tissue swelling and ecchymosis surrounding the medial and lateral aspects of the incision. Calf is soft, no tenderness with palpation. Plantar flexion, dorsiflexion, EHL, FHL are intact. Sensory exam to light touch throughout the extremity is intact, dorsal pedis pulses 2+. - Labs CBC & Chem 7: 08/01/17 06:48 Labs: Abnormal Lab Results - Last 24 Hours (Table) 07/31/17 07/31/17 08/01/17 Range/Units 16:52 20:53 06:48 WBC 13.0 H (3.8-10.6) k/uL Neutrophils # 9.8 H (1.3-7.7) k/uL POC Glucose (mg/dL) 173 H 247 H (75-99) mg/dL 08/01/17 08/01/17 Range/Units 06:53 11:28 WBC (3.8-10.6) k/uL Neutrophils # (1.3-7.7) k/uL POC Glucose (mg/dL) 146 H 138 H (75-99) mg/dL Assessment and Plan Plan: Assessment: 1. Postop day #1 status post left total knee arthroplasty Plan: Pain control, continue use of oral medication Daily dressing changes/ice and elevate Wound care instructions were discussed Encourage incentive sprouted DVT prophylaxis, continue subcu medication Medical recommendations Discharge planning: Patient likely be discharged to rehab on 08/03/2017 Time with Patient: Less than 30
[2017-08-01 14:05] LABS: Calcium 9.4 mg/dL (8.4-10.2); Potassium 4.9 mmol/L (3.5-5.1)
[2017-08-01 14:15] LABS: Hemoglobin A1C 6.7 % (4.0-6.0)
--- NOTE | 2017-08-01 14:47 | P.PN ---
Subjective Patient is admitted for left knee arthroplasty patient pain is well-controlled no overnight events. I do not have any basic metabolic profile available since patient is on metformin and also on Lasix for peripheral edema without any evidence of congestive heart failure in the past will obtain a basic metabolic profile now. Patient has leukocytosis without any evidence of infection at this time which is probably reactive from surgery. Constitutional: Denied any fatigue denied any fever. Cardio vascular: denied any chest pain, palpitations Gastrointestinal denied any nausea vomiting Pulmonary: Denied any shortness of breath cough Neurologic denied any new focal deficits Objective - Vital Signs Vital signs: Vital Signs Temp 97.8 F 08/01/17 14:36 Pulse 71 08/01/17 14:36 Resp 16 08/01/17 14:36 BP 132/70 08/01/17 14:36 Pulse Ox 93 L 08/01/17 14:36 Intake & Output 07/31/17 08/01/17 08/01/17 18:59 06:59 18:59 Intake Total 1751 800 Output Total 60 200 Balance 1691 600 Weight 92.533 kg Intake: IV 1401 Intake, IV Titration 800 Amount Sodium Chloride 0.9% 1, 800 000 ml @ 50 mls/hr IV . Q20H ANAT Rx#:[id number] Oral 350 Output: Urine 200 Estimated Blood Loss 60 Other: Voiding Method Toilet # Voids 2 1 - Exam PHYSICAL EXAMINATION: GENERAL: The patient is alert and oriented x3, not in any acute distress. Well developed, well nourished. HEENT: Pupils are round and equally reacting to light. EOMI. No scleral icterus. No conjunctival pallor. Normocephalic, atraumatic. No pharyngeal erythema. No thyromegaly. CARDIOVASCULAR: S1 and S2 present. No murmurs, rubs, or gallops. PULMONARY: Chest is clear to auscultation, no wheezing or crackles. ABDOMEN: Soft, nontender, nondistended, normoactive bowel sounds. No palpable organomegaly. MUSCULOSKELETAL: Deferred to orthopedic surgery EXTREMITIES: No cyanosis, clubbing, or pedal edema. NEUROLOGICAL: Gross neurological examination did not reveal any focal deficits. SKIN: No rashes. - Labs CBC & Chem 7: 08/01/17 06:48 08/01/17 06:48 Labs: Abnormal Lab Results - Last 24 Hours (Table) 07/31/17 07/31/17 08/01/17 Range/Units 16:52 20:53 06:48 WBC 13.0 H (3.8-10.6) k/uL Neutrophils # 9.8 H (1.3-7.7) k/uL BUN (7-17) mg/dL Glucose (74-99) mg/dL POC Glucose (mg/dL) 173 H 247 H (75-99) mg/dL 08/01/17 08/01/17 08/01/17 Range/Units 06:48 06:53 11:28 WBC (3.8-10.6) k/uL Neutrophils # (1.3-7.7) k/uL BUN 22 H (7-17) mg/dL Glucose 138 H (74-99) mg/dL POC Glucose (mg/dL) 146 H 138 H (75-99) mg/dL Assessment and Plan Plan: -Status post left knee arthroplasty: Pain is well-controlled, due to prophylaxis as per primary service -Type 2 diabetes mellitus: Well controlled on present regimen, that his metformin which will be continued. -Hypertension: Blood pressure is well controlled continue with Lasix and losartan. -Depression -Degenerative joint disease -Hypothyroidism continue with levothyroxine
[2017-08-01 16:54] LABS: Glucose,Whole Blood 134 mg/dL (75-99)
--- NOTE | 2017-08-01 17:08 | XR ---
EXAMINATION TYPE: XR chest 2V DATE OF EXAM: 08/01/2017 COMPARISON: None HISTORY: 72-year-old female rehabilitation placement TECHNIQUE: AP and lateral views FINDINGS: Heart upper limits of normal in size. Elevation of the right hemidiaphragm with patchy right basilar opacity. Mild diffuse interstitial prominence of the chronic appearance. No pleural effusion. Endplat e spondylosis midthoracic spine. ACDF hardware. Cholecystectomy clips. IMPRESSION: 1. Borderline heart size. 2. Patchy right basilar atelectasis favored over early infiltrate. Clinically correlate. 3. Asymmetric elevation of the right hemidiaphragm.
[2017-08-01] MEDS: SENNOSIDES-DOCUSATE SODIUM 1 EACH TAB PO SCH (19:55)
[2017-08-01] MEDS: FENOFIBRATE 160 MG TAB PO SCH (19:59)
[2017-08-01] MEDS: MELATONIN 5 MG TABLET PO SCH (19:59)
[2017-08-01] MEDS: VENLAFAXINE HCL ER 75 MG CAP PO SCH (19:59)
[2017-08-01] MEDS: AMITRIPTYLINE HCL 25 MG TAB PO SCH (19:59)
[2017-08-01 20:45] LABS: Glucose,Whole Blood 189 mg/dL (75-99)
[2017-08-02] MEDS: HYDROcodone/APAP 7.5-325MG 1 EACH TAB PO PRN ×4 (02:46→23:22)
[2017-08-02] MEDS: hydrOXYzine PAMOATE 25 MG CAP PO PRN ×4 (02:47→23:21)
[2017-08-02] MEDS: LACTATED RINGERS 1,000 ML IV SCH (05:47)
[2017-08-02] MEDS: LEVOTHYROXINE 25 MCG TAB PO SCH (05:48)
[2017-08-02] MEDS: MELOXICAM 7.5 MG TAB PO SCH ×2 (08:00→08:01)
[2017-08-02] MEDS: LOSARTAN 50 MG TAB PO SCH (08:00)
[2017-08-02] MEDS: metFORMIN 850 MG TAB PO SCH (08:01)
[2017-08-02] MEDS: ENOXAPARIN 30 MG/0.3 ML SYRINGE SQ SCH ×2 (08:02→21:23)
[2017-08-02] MEDS: traMADol 50 MG TAB PO SCH ×4 (08:44→21:26)
[2017-08-02] MEDS: FAMOTIDINE 20 MG TAB PO SCH (08:45)
[2017-08-02] MEDS: DOCUSATE 100 MG CAP PO SCH (08:45)
[2017-08-02] MEDS: FUROSEMIDE 40 MG TAB PO SCH ×2 (08:45→16:32)
[2017-08-02] MEDS: INSULIN ASPART 100 UNIT/ML 1 ML 10 ML VIAL SQ SCH ×4 (08:56→21:22)
[2017-08-02] MEDS ORDERED: MAG HYDROX/AL HYDROX/SIMETH 30 ML CUP PO PRN (10:30)
--- NOTE | 2017-08-02 11:30 | P.PN ---
Subjective Progress Note Date: 08/02/17 Principal diagnosis: Status post left total knee arthroplasty Patient seen today resting in her hospital bed, she appears comfortable. Pain is improved today. She denies any headaches, lightheadedness, chest pain or shortness of breath. Objective - Vital Signs Vital signs: Vital Signs Temp 97.3 F L 08/02/17 08:06 Pulse 77 08/02/17 08:06 Resp 16 08/02/17 08:06 BP 166/69 08/02/17 08:06 Pulse Ox 96 08/02/17 08:06 Intake & Output 08/01/17 08/02/17 08/02/17 18:59 06:59 18:59 Intake Total 600 Balance 600 Intake: Oral 600 Other: Voiding Method Bedside Commode # Voids 1 1 - Exam Left lower extremity: Incision is clean, dry, and intact. [place] are in good position. There is minimal soft tissue swelling and ecchymosis surrounding the medial and lateral aspects of the incision. Calf is soft, no tenderness with palpation. Plantar flexion, dorsiflexion, EHL, FHL are intact. Sensory exam to light touch throughout the extremity is intact, dorsal pedis pulses 2+. - Labs CBC & Chem 7: 08/01/17 06:48 08/01/17 06:48 Labs: Abnormal Lab Results - Last 24 Hours (Table) 08/01/17 08/01/17 08/01/17 Range/Units 06:48 06:48 11:28 BUN 22 H (7-17) mg/dL Glucose 138 H (74-99) mg/dL POC Glucose (mg/dL) 138 H (75-99) mg/dL Hemoglobin A1c 6.7 H (4.0-6.0) % 08/01/17 08/01/17 Range/Units 16:48 20:43 BUN (7-17) mg/dL Glucose (74-99) mg/dL POC Glucose (mg/dL) 134 H 189 H (75-99) mg/dL Hemoglobin A1c (4.0-6.0) % Assessment and Plan Plan: Assessment: 1. Postop day #2 status post left total knee arthroplasty Plan: Pain control, continue use of oral medication Daily dressing changes/ice and elevate Wound care instructions were discussed Encourage incentive sprouted DVT prophylaxis, we'll discharge on aspirin 325 mg twice a day Medical recommendations Discharge planning: Patient likely be discharged to rehab on 08/03/2017 Time with Patient: Less than 30
[2017-08-02 11:32] LABS: Glucose,Whole Blood 127 mg/dL (75-99)
--- NOTE | 2017-08-02 11:33 | P.DS ---
Providers Date of admission: 07/31/17 11:08 Expected date of discharge: 08/03/17 Attending physician: Rambo Manning Consults: 07/31/17 15:20 Consult Physician Routine Consulting Provider: Destiney Villatoro Consult Reason/Comments: Medical management Do you want consulting provider notified?: Yes [facility] Hospital Course: Date of admission: 07/31/2017 Date of discharge: 08/03/2017 Admission diagnosis: Status post left total knee arthroplasty Discharge diagnosis: Same Attending physician: Dr. Manning Surgical procedures: Left total knee arthroplasty Brief history: Patient is a 72-year-old female with a history of progressive left knee osteoarthritis. At this point patient has failed conservative treatment measures and has opted to proceed with a elective left total knee arthroplasty. Hospital course: Details of patient's surgery can be found in operative report. Patient tolerated the procedure well and was subsequently transported to orthopedic floor. Patient's orthopeidc and medical care was provided daily. Patient had daily laboratory tests performed for evaluation of overall blood counts. Patient had daily physical therapy to include strengthening range of motion as well as education with walker ambulation. Patient had daily CPM usage as part of their physical therapy program. Patient was treated with Lovenox for their postoperative DVT prophylaxis during their inpatient stay. Patient was noted to have a relatively uneventful postoperative course. Patient reported satisfactory pain control with oral pain medications by postoperative day 0. Patient showed satisfactory progress with physical therapy. Patient moved steadily through the program and had no difficulty meeting the goals by postoperative day 3. Given patient's otherwise satisfactory course and having met physical therapy goals, plan is to discharge patient rehab on postoperative day 3. Discharge condition/disposition: Patient will be discharged rehab in stable condition. Discharge medications: Instructions are given on resumption of patient's normal daily medications per primary care recommendation, in addition patient will be prescribed [place]grass 7.5 mg/325 mg, tramadol 50 mg, Colace 100 mg, aspirin 325 mg. Discharge instructions: 1. Wound care and infection precautions, keep incision dry and covered while showering, no lotions, creams, moisturizers. No soaking, tubs, pools, hottubs. Do not scrub over the incision. 2. Weight-bear as tolerated with walker / cane until follow-up. 3. Ice and elevate when necessary. Do not exceed 20 minutes per hour with ice pack. 4. Utilize compression sleeve until seen at first follow up appointment. 5. Visiting nursing care. 6. Home physical therapy including home CPM. 7. Pain meds and anticoagulants per prescription. 8. Pain medication has potential to cause constipation. Increase oral fluid and fiber intake. Contact primary care provider if you have not had a bowel movement within 48 hours after discharge 9. No anti-inflammatory medication until discussed at first post operative visit, this including Motrin, Aleve, Mobic, Diclofenac. 10. Follow up in office at 2 weeks postop with Zachariah De La Torre PA-C 11. Follow up with your primary care doctor 7-10 days after discharge. 12. Contact [facility] with any questions, . Procedures: Left total knee arthroplasty Patient Condition at Discharge: Good Plan - Discharge Summary Discharge Rx Participant: Yes New Discharge Prescriptions: New Aspirin 325 mg PO BID #60 tab Docusate [Colace] 100 mg PO DAILY #30 capsule HYDROcodone/APAP 7.5-325MG [Pendergrass 7.5] 1 - 2 each PO Q6HR PRN #60 tab PRN Reason: Pain No Action Amitriptyline HCl [Elavil] 25 - 75 mg PO HS Levothyroxine Sodium [Synthroid] 25 mcg PO QAM Furosemide [Lasix] 40 mg PO BID metFORMIN HCL [Glucophage] 850 mg PO QAM Venlafaxine HCl [Effexor XR] 75 mg PO HS Melatonin 10 - 20 mg PO HS Fenofibrate,Micronized [Fenofibrate] 134 mg PO HS Docusate [Colace] 100 mg PO DAILY #30 capsule Losartan Potassium 100 mg PO QAM Acetaminophen [Tylenol Extra Strength] 1,000 mg PO BID Discharge Medication List Amitriptyline HCl [Elavil] 25 - 75 mg PO HS 04/17/17 [History] Fenofibrate,Micronized [Fenofibrate] 134 mg PO HS 04/17/17 [History] Furosemide [Lasix] 40 mg PO BID 04/17/17 [History] Levothyroxine Sodium [Synthroid] 25 mcg PO QAM 04/17/17 [History] Melatonin 10 - 20 mg PO HS 04/17/17 [History] Venlafaxine HCl [Effexor XR] 75 mg PO HS 04/17/17 [History] metFORMIN HCL [Glucophage] 850 mg PO QAM 04/17/17 [History] Docusate [Colace] 100 mg PO DAILY #30 capsule 04/25/17 [Rx] Acetaminophen [Tylenol Extra Strength] 1,000 mg PO BID 07/20/17 [History] Losartan Potassium 100 mg PO QAM 07/20/17 [History] Aspirin 325 mg PO BID #60 tab 08/02/17 [Rx] Docusate [Colace] 100 mg PO DAILY #30 capsule 08/02/17 [Rx] HYDROcodone/APAP 7.5-325MG [Pendergrass 7.5] 1 - 2 each PO Q6HR PRN #60 tab 08/02/17 [ Rx] Follow up Appointment(s)/Referral(s): Kevin De La Torre, LATRICIA [PHYSICIAN CAN HANDLER] - 2 Weeks Activity/Diet/Wound Care/Special Instructions: Orthopedic Discharge Instructions: 1. Wound care and infection precautions, keep incision dry and covered while showering, no lotions, creams, moisturizers. No soaking, pools, hot tubs. Do not scrub over incision. 2. Weight-bear as tolerated with walker / cane until follow-up. 3. Ice and elevate when necessary. Do not exceed 20 minutes per hour with ice pack. 4. Utilize compression sleeve until seen at first follow up appointment. 5. Visiting nursing care. 6. Home physical therapy including home CPM. 7. Pain meds and anticoagulants per prescription. 8. Pain medication has potential to cause constipation. Increase oral fluid and fiber intake. Contact primary care provider if you have not had a bowel movement within 48 hours after discharge. 9. No anti-inflammatory medication until discussed at first post operative visit, this including Motrin, Aleve, Mobic, Diclofenac. 10. Follow up in office at 2 weeks postop with Zachariah De La Torre PA-C 11. Follow up with your primary care doctor 7-10 days after discharge. 12. Contact [facility] with any questions, . Discharge Disposition: TRANSFER TO SNF/ECF
--- NOTE | 2017-08-02 14:32 | P.PN ---
Subjective Patient is admitted for left knee arthroplasty patient pain is well-controlled no overnight events. I do not have any basic metabolic profile available since patient is on metformin and also on Lasix for peripheral edema without any evidence of congestive heart failure in the past will obtain a basic metabolic profile now. Patient has leukocytosis without any evidence of infection at this time which is probably reactive from surgery. 08/02/2017 No overnight events patient is complaining of epigastric abdominal discomfort and acid reflex secondary to nonsteroidal anti-inflammatories patient was switched to Protonix as well as to avoid nonsteroidal anti-inflammatories for her pain. Constitutional: Denied any fatigue denied any fever. Cardio vascular: denied any chest pain, palpitations Gastrointestinal denied any nausea vomiting Pulmonary: Denied any shortness of breath cough Neurologic denied any new focal deficits Objective - Vital Signs Vital signs: Vital Signs Temp 97.3 F L 08/02/17 08:06 Pulse 77 08/02/17 08:06 Resp 16 08/02/17 08:06 BP 166/69 08/02/17 08:06 Pulse Ox 96 08/02/17 08:06 Intake & Output 08/01/17 08/02/17 08/02/17 18:59 06:59 18:59 Intake Total 600 Balance 600 Intake: Oral 600 Other: Voiding Method Bedside Commode # Voids 1 1 - Exam PHYSICAL EXAMINATION: GENERAL: The patient is alert and oriented x3, not in any acute distress. Well developed, well nourished. HEENT: Pupils are round and equally reacting to light. EOMI. No scleral icterus. No conjunctival pallor. Normocephalic, atraumatic. No pharyngeal erythema. No thyromegaly. CARDIOVASCULAR: S1 and S2 present. No murmurs, rubs, or gallops. PULMONARY: Chest is clear to auscultation, no wheezing or crackles. ABDOMEN: Soft, nontender, nondistended, normoactive bowel sounds. No palpable organomegaly. MUSCULOSKELETAL: Deferred to orthopedic surgery EXTREMITIES: No cyanosis, clubbing, or pedal edema. NEUROLOGICAL: Gross neurological examination did not reveal any focal deficits. SKIN: No rashes. - Labs CBC & Chem 7: 08/01/17 06:48 08/01/17 06:48 Labs: Abnormal Lab Results - Last 24 Hours (Table) 08/01/17 08/01/17 08/01/17 Range/Units 06:48 16:48 20:43 POC Glucose (mg/dL) 134 H 189 H (75-99) mg/dL Hemoglobin A1c 6.7 H (4.0-6.0) % 08/02/17 Range/Units 11:28 POC Glucose (mg/dL) 127 H (75-99) mg/dL Hemoglobin A1c (4.0-6.0) % Assessment and Plan Plan: -Status post left knee arthroplasty: Pain is well-controlled, due to prophylaxis as per primary service -Type 2 diabetes mellitus: Well controlled on present regimen, that his metformin which will be continued. -Hypertension: Blood pressure is well controlled continue with Lasix and losartan. -Depression -Degenerative joint disease -Hypothyroidism continue with levothyroxine
[2017-08-02] MEDS: PANTOPRAZOLE 40 MG TABLET PO SCH (16:32)
[2017-08-02] MEDS: SODIUM CHLORIDE 0.9% 1,000 ML IV SCH (16:38)
[2017-08-02 17:14] LABS: Glucose,Whole Blood 155 mg/dL (75-99)
[2017-08-02 20:44] LABS: Glucose,Whole Blood 150 mg/dL (75-99)
[2017-08-02] MEDS: MELATONIN 5 MG TABLET PO SCH (21:23)
[2017-08-02] MEDS: SENNOSIDES-DOCUSATE SODIUM 1 EACH TAB PO SCH (21:23)
[2017-08-02] MEDS: VENLAFAXINE HCL ER 75 MG CAP PO SCH (21:23)
[2017-08-02] MEDS: AMITRIPTYLINE HCL 25 MG TAB PO SCH (21:23)
[2017-08-02] MEDS: FENOFIBRATE 160 MG TAB PO SCH (21:24)
[2017-08-03] MEDS: SODIUM CHLORIDE 0.9% 1,000 ML IV SCH (04:55)
[2017-08-03] MEDS: LACTATED RINGERS 1,000 ML IV SCH (05:47)
[2017-08-03] MEDS: hydrOXYzine PAMOATE 25 MG CAP PO PRN (05:54)
[2017-08-03] MEDS: HYDROcodone/APAP 7.5-325MG 1 EACH TAB PO PRN (05:55)
[2017-08-03] MEDS: LEVOTHYROXINE 25 MCG TAB PO SCH (05:55)
[2017-08-03 07:04] LABS: Glucose,Whole Blood 141 mg/dL (75-99)
[2017-08-03 07:12] VITALS: BP 155/72; PULSE 81; TEMP 97
[2017-08-03 07:35] LABS: Basophils % (A) 0 %; Eosinophils # (A) 0.3 k/uL (0-0.7); Eosinophils % (A) 3 %; HCT 34.3 % (34.0-46.0); HGB 10.9 gm/dL (11.4-16.0); Lymphocytes # (A) 2.7 k/uL (1.0-4.8); Lymphocytes % (A) 29 %; MCH 28.4 pg (25.0-35.0); MCHC 31.6 g/dL (31.0-37.0); MCV 89.7 fL (80.0-100.0); Mean Platelet Volume 7.7; Monocytes # (A) 0.7 k/uL (0-1.0); Monocytes % (A) 8 %; Neutrophils # (A) 5.4 k/uL (1.3-7.7); Neutrophils % (A) 57 %; Platelet Count 275 k/uL (150-450); RBC 3.83 m/uL (3.80-5.40); RDW 13.7 % (11.5-15.5); WBC 9.3 k/uL (3.8-10.6)
[2017-08-03] MEDS: INSULIN ASPART 100 UNIT/ML 1 ML 10 ML VIAL SQ SCH ×2 (08:00→11:49)
[2017-08-03] MEDS: DOCUSATE 100 MG CAP PO SCH (08:03)
[2017-08-03] MEDS: PANTOPRAZOLE 40 MG TABLET PO SCH (08:03)
[2017-08-03] MEDS: metFORMIN 850 MG TAB PO SCH (08:04)
[2017-08-03] MEDS: LOSARTAN 50 MG TAB PO SCH (08:04)
[2017-08-03] MEDS: ENOXAPARIN 30 MG/0.3 ML SYRINGE SQ SCH (08:04)
[2017-08-03] MEDS: traMADol 50 MG TAB PO SCH ×2 (08:04→12:10)
[2017-08-03] MEDS: FUROSEMIDE 40 MG TAB PO SCH (08:04)
--- NOTE | 2017-08-03 11:11 | P.PN ---
Progress Note - Text Progress Note Date: 08/03/17 Patient is seen sitting bedside. She reports some discomfort in the knee but tolerating it with pain medication. Patient is having difficulty with ambulation. Incision stable. Negative Yasmany, negative Homans. Distal neurovascular exam intact. Impression: Status post left total knee arthroplasty Plan: We will transfer to ECF/rehab facility today with appropriate discharge instructions
[2017-08-03 11:38] LABS: Glucose,Whole Blood 125 mg/dL (75-99)
--- NOTE | 2017-08-03 13:13 | P.PN ---
Subjective Patient is admitted for left knee arthroplasty patient pain is well-controlled no overnight events. I do not have any basic metabolic profile available since patient is on metformin and also on Lasix for peripheral edema without any evidence of congestive heart failure in the past will obtain a basic metabolic profile now. Patient has leukocytosis without any evidence of infection at this time which is probably reactive from surgery. 08/02/2017 No overnight events patient is complaining of epigastric abdominal discomfort and acid reflex secondary to nonsteroidal anti-inflammatories patient was switched to Protonix as well as to avoid nonsteroidal anti-inflammatories for her pain. 08/03/2017 Epigastric abdominal discomfort resolved patient will be discharged on Prilosec. Constitutional: Denied any fatigue denied any fever. Cardio vascular: denied any chest pain, palpitations Gastrointestinal denied any nausea vomiting Pulmonary: Denied any shortness of breath cough Neurologic denied any new focal deficits Objective - Vital Signs Vital signs: Vital Signs Temp 97.0 F L 08/03/17 07:00 Pulse 81 08/03/17 07:00 Resp 16 08/03/17 07:00 BP 155/72 08/03/17 07:00 Pulse Ox 95 08/03/17 07:00 Intake & Output 08/02/17 08/03/17 08/03/17 18:59 06:59 18:59 Intake Total 600 Balance 600 Intake: Oral 600 Other: Voiding Method Toilet # Voids 2 3 - Exam PHYSICAL EXAMINATION: GENERAL: The patient is alert and oriented x3, not in any acute distress. Well developed, well nourished. HEENT: Pupils are round and equally reacting to light. EOMI. No scleral icterus. No conjunctival pallor. Normocephalic, atraumatic. No pharyngeal erythema. No thyromegaly. CARDIOVASCULAR: S1 and S2 present. No murmurs, rubs, or gallops. PULMONARY: Chest is clear to auscultation, no wheezing or crackles. ABDOMEN: Soft, nontender, nondistended, normoactive bowel sounds. No palpable organomegaly. MUSCULOSKELETAL: Deferred to orthopedic surgery EXTREMITIES: No cyanosis, clubbing, or pedal edema. NEUROLOGICAL: Gross neurological examination did not reveal any focal deficits. SKIN: No rashes. - Labs CBC & Chem 7: 08/03/17 06:56 08/01/17 06:48 Labs: Abnormal Lab Results - Last 24 Hours (Table) 08/02/17 08/02/17 08/03/17 Range/Units 17:12 20:42 06:56 Hgb 10.9 L (11.4-16.0) gm/dL POC Glucose (mg/dL) 155 H 150 H (75-99) mg/dL 08/03/17 08/03/17 Range/Units 07:01 11:34 Hgb (11.4-16.0) gm/dL POC Glucose (mg/dL) 141 H 125 H (75-99) mg/dL Assessment and Plan Plan: -Status post left knee arthroplasty: Pain is well-controlled, due to prophylaxis as per primary service -Type 2 diabetes mellitus: Well controlled on present regimen, that his metformin which will be continued. -Hypertension: Blood pressure is well controlled continue with Lasix and losartan. -Depression -Degenerative joint disease -Hypothyroidism continue with levothyroxine
== END 2017-08-03 13:40 | DRG 470 ==
LOC: 2ORMAIN 11:08 → 3SUR 15:31
PROVIDERS: ADMIT Orthopaedic Surgery; ATTEND Orthopaedic Surgery
PROC: 0SRD0J9 Replacement of Left Knee Joint with Synthetic Substitute, Cemented, Open Approach (ICD-10-PCS; principal; 2017-07-31 13:00)
DX: M17.12 Unilateral primary osteoarthritis, left knee (principal); D72.829 Elevated white blood cell count, unspecified; E03.9 Hypothyroidism, unspecified; E11.9 Type 2 diabetes mellitus without complications; E78.5 Hyperlipidemia, unspecified; F17.210 Nicotine dependence, cigarettes, uncomplicated; I10 Essential (primary) hypertension; F32.9 Major depressive disorder, single episode, unspecified; F41.9 Anxiety disorder, unspecified; R10.13 Epigastric pain; T39.395A Adverse effect of other nonsteroidal anti-inflammatory drugs [NSAID], initial encounter; Y92.239 Unspecified place in hospital as the place of occurrence of the external cause; Z79.84 Long term (current) use of oral hypoglycemic drugs; Z79.899 Other long term (current) drug therapy; Z79.890 Hormone replacement therapy; Z96.651 Presence of right artificial knee joint; Z90.49 Acquired absence of other specified parts of digestive tract; Z90.710 Acquired absence of both cervix and uterus; Z98.1 Arthrodesis status; Z88.5 Allergy status to narcotic agent; Z88.0 Allergy status to penicillin; Z80.9 Family history of malignant neoplasm, unspecified
CPT/HCPCS: 71046; 80048; 83036; 85025; 88300

== ENCOUNTER 2023-01-27 06:53 | Day surgery (SDC) | payer MEDICARE ==
[2023-01-25 15:40] VITALS: BMI 34.7
[~2023-01-27 06:53] MED LIST changes: -ACETAMINOPHEN TAB 500 MG TAB PO ONE; -DEXAMETHASONE SOD PHOSPHATE 10 MG/ML 1 ML VIAL IV ONE; +LACTATED RINGERS 1,000 ML IV SCH; -MELOXICAM 7.5 MG TAB PO ONE; -MIDAZOLAM 2 MG/2 ML VIAL IV PRN; -ONDANSETRON 4 MG/2 ML VIAL IVP ONE; -TRANEXAMIC ACID 1,000 MG in SODIUM CHLORIDE 0.9% 50 ML IVPB ONE; -ceFAZolin IN SWFI 2 GM/20 ML SYRINGE IVP ONE; -fentaNYL (PF) 50 MCG/ML 2 ML AMP IV PRN
[2023-01-27 07:14] LABS: Glucose,Whole Blood 148 mg/dL (70-110)
[2023-01-27] MEDS ORDERED: LACTATED RINGERS 1,000 ML IV ONE (07:16)
[2023-01-27 07:35] VITALS: TEMP 97.8
[2023-01-27] MEDS ORDERED: PROPOFOL 10 MG/ML 20 ML VIAL IV ONE (07:51)
[2023-01-27] MEDS ORDERED: LIDOCAINE 1% INJ 10MG/ML (20 ML MDV) ONE (07:51)
--- NOTE | 2023-01-27 08:15 | P.PCN ---
Date of Procedure: 01/27/23 Procedure(s) Performed: Brief history: Patient is a pleasant 77-year-old white female scheduled for an elective upper endoscopy as well as colonoscopy as a part of evaluation of Iron deficiency anemia. She is been complaining of intermittent epigastric pain but denies any nausea vomiting, rectal bleeding or melena. No prior history of EGD or colonoscopy in the past Procedure performed: Esophagogastroduodenoscopy with biopsy and cautery Colonoscopy with snare polypectomy and Preoperative diagnosis: Iron deficiency anemia and epigastric pain Anesthesia: MAC Procedure: After informed consent was obtained from the patient was brought into the endoscopy unit and IV sedation was administered by anesthesia under continuous monitoring. Initially upper endoscopy was done. The Olympus GF 160 video endoscope was inserted inserted into the mouth and esophagus intubated without any difficulty and was gradually advanced into the stomach and duodenum and carefully examined. The bulb a of the duodenum appeared normal. In the second part of the duodenum there was a 3 mm nonbleeding angiectasia which was cauterized using a cold probe. Biopsies were done from the duodenum to rule out celiac disease. The scope was then withdrawn into the stomach adequately insufflated with air and upon careful examination the antrum and body, cardia and fundus appeared normal. The scope was then withdrawn into the esophagus. The GE junction was located at 40 cm to the incisors. It appeared regular with no erythema erosions or ulcerations. Rest of the esophagus appeared normal. Patient tolerated the procedure well. At this time the patient continued to remain sedation. Initial digital rectal examination was normal. Olympus CF 160 video colonoscope was then inserted into the rectum and gradually advanced to the cecum without any difficulty. Careful examination was performed as the scope was gradually being withdrawn. The prep was excellent. The cecum, ascending colon, appeared normal. The hepatic flexure there was a 6 cm polyp that was removed by cold snare polypectomy. Rest of the transverse colon, descending colon, sigmoid colon and rectum appeared normal. Scattered sigmoid diverticulosis seen. Retroflexion was performed in the rectum and no lesions were noted. Patient tolerated the procedure well. Impression: 1. Upper endoscopy revealed a 3 mm nonbleeding duodenal angiectasia status post cautery using a gold probe 2. Colonoscopy revealed 6 mm hepatic flexure polyp status post cold snare polypectomy and scattered sigmoid diverticulosis Recommendations: Findings of this examination were discussed with the patient as well as her family. She was advised to follow with the biopsy results. Continue iron supplements and monitor CBC periodically. If the biopsy reveals an adenoma she can have a repeat colonoscopy in 5 years based on her overall medical condition
[2023-01-27 08:49] VITALS: BP 131/74; PULSE 72; RESP 18
== END 2023-01-27 08:46 | disposition home or self-care (01) ==
LOC: ORWHC2ENDO 06:53
PROVIDERS: ATTEND Internal Medicine Gastroenterology
DX: D12.3 Benign neoplasm of transverse colon (principal); K57.30 Diverticulosis of large intestine without perforation or abscess without bleeding; I99.8 Other disorder of circulatory system; I10 Essential (primary) hypertension; E78.5 Hyperlipidemia, unspecified; E11.9 Type 2 diabetes mellitus without complications; E07.9 Disorder of thyroid, unspecified; F32.A Depression, unspecified; F41.9 Anxiety disorder, unspecified; Z85.3 Personal history of malignant neoplasm of breast; Z96.653 Presence of artificial knee joint, bilateral; Z90.710 Acquired absence of both cervix and uterus; Z98.890 Other specified postprocedural states; Z88.0 Allergy status to penicillin; Z88.5 Allergy status to narcotic agent; Z88.8 Allergy status to other drugs, medicaments and biological substances; Z79.84 Long term (current) use of oral hypoglycemic drugs; Z79.890 Hormone replacement therapy; Z79.899 Other long term (current) drug therapy
CPT/HCPCS: 88305; 45385; 43239; 43270; J2001; J2704

== ENCOUNTER → 2024-02-14 | Outpatient (CLI) | payer MEDICARE ==
--- NOTE | 2024-02-14 13:28 | XR ---
EXAMINATION TYPE: XR shoulder complete 3 views RT DATE OF EXAM: 02/14/2024 10:35 AM COMPARISON: None CLINICAL INDICATION: Female, 78 years old with history of [id number] RT SHLD PAIN, , FINDINGS: Partially visualized ACDF hardware. There is some mild marginal spurring at the AC joint which otherw ise appears congruent and intact. Subacromial space is observed. No acute fracture, subluxation, disl ocation. IMPRESSION: Mild degenerative change AC joint. No acute osseous abnormality seen. [facility], , 02/14/2024 1:26 PM
== END | disposition home or self-care (01) ==
LOC: RADXRYALE 10:20
PROVIDERS: ATTEND Physician Assistant Medical
DX: M19.011 Primary osteoarthritis, right shoulder (principal)